=== PATIENT | male | born 1990 | race Caucasian/White ===

== ENCOUNTER 2021-07-08 12:19 | Emergency (ER) | payer OTHER ==
[~2021-07-08] VITALS: Ht 195.6 cm; Wt 150.0 kg
[2021-07-08] MEDS ORDERED: KETOROLAC 60MG/2ML VIAL IM ONE (14:15)
[2021-07-08 14:53] VITALS: BP 141/89
[2021-07-08] MEDS ORDERED: PREDNISONE 20MG TABLET PO ONE (17:15)
[2021-07-08] MEDS ORDERED: NAPR-681 MT (18:03)
[2021-07-08] MEDS ORDERED: CEPH500T MT (18:03)
== END 2021-07-08 18:43 | disposition home or self-care (01) ==
LOC: ER 13:40
DX: L03.032 Cellulitis of left toe (principal); I87.8 Other specified disorders of veins
CPT/HCPCS: 73630; 93971; 96372; 99284; J1885; J7512

== ENCOUNTER 2021-07-15 13:07 | Emergency (ER) | payer OTHER ==
[~2021-07-15] VITALS: Ht 198.1 cm; Wt 159.0 kg
[~2021-07-15 13:07] MED LIST: CEPH500T MT; NAPR-681 MT
[2021-07-15 13:13] VITALS: BP 180/106
[2021-07-15] MEDS ORDERED: NAPR-681 MT (14:12)
[2021-07-15] MEDS ORDERED: CEPH500T MT (14:12)
== END 2021-07-15 15:35 | disposition home or self-care (01) ==
LOC: ER 13:07
DX: M79.675 Pain in left toe(s) (principal); R03.0 Elevated blood-pressure reading, without diagnosis of hypertension
CPT/HCPCS: 99283